=== PATIENT | male | born 1990 | race Asian ===

== ENCOUNTER → 2017-10-19 | Outpatient (CLI) | payer OTHER | LOC: M RAD 10:09 | DX: J32.0 Chronic maxillary sinusitis (principal); J34.89 Other specified disorders of nose and nasal sinuses | CPT/HCPCS: 70486 ==

== ENCOUNTER 2017-12-28 18:40 | Emergency (ER) | payer OTHER ==
[2017-12-28 21:53] LABS: HEMOGLOBIN 16.1 g/dl (13.5-17.5); MEAN CORPUSCULAR HEMOGLOBIN 29.4 pg (27.0-33.0); MEAN CORPUSCULAR HGB CONC 33.5 g/dl (32.0-36.5); MEAN CORPUSCULAR VOLUME 87.8 fl (80.0-96.0); PLATELET COUNT, AUTOMATED 346 10^3/uL (150-450); RED BLOOD COUNT 5.47 10^6/uL (4.30-6.10); RED CELL DISTRIBUTION WIDTH 11.9 % (11.5-14.5)
[2017-12-28 22:20] LABS: ANION GAP 4 MEQ/L (8-16); BLOOD UREA NITROGEN 15 MG/DL (7-18); C REACTIVE PROTEIN QUANTITATIV 1.98 MG/DL (0.00-0.30); CALCIUM LEVEL 9.4 MG/DL (8.5-10.1); CARBON DIOXIDE LEVEL 32 MEQ/L (21-32); CHLORIDE LEVEL 104 MEQ/L (98-107); CREATININE FOR GFR 1.04 MG/DL (0.70-1.30); GLOMERULAR FILTRATION RATE > 60.0 (>60); GLUCOSE, FASTING 96 MG/DL (70-100); POTASSIUM SERUM 4.3 MEQ/L (3.5-5.1); SODIUM LEVEL 140 MEQ/L (136-145)
[2017-12-28 22:38] LABS: ERYTHROCYTE SEDIMENTATION RATE 10 mm/hr (0-15)
[2017-12-28] MEDS ORDERED: ISOVUE-370 76% 100ML VIAL (Q9967) As Ordered (22:41)
[2017-12-28] MEDS: AUGMENTIN 875 MG TAB PO (23:49)
[2017-12-28] MEDS: KETOROLAC 30 MG/ML VIAL (J1885) IV (23:49)
[2017-12-28] MEDS: NORCO 5/325MG TABLET (BULK FOR ED) PO (23:56)
== END 2017-12-29 00:22 | disposition home or self-care (01) ==
LOC: M ED 12-29 00:22
DX: G89.18 Other acute postprocedural pain (principal); J32.9 Chronic sinusitis, unspecified; F17.200 Nicotine dependence, unspecified, uncomplicated
CPT/HCPCS: Q9967